=== PATIENT | female | born 1950 ===

== ENCOUNTER → 2023-05-19 13:03 | Outpatient (REF) | payer OTHER, SELFPAY | LOC: DHCBC HW 13:03 | PROVIDERS: ATTENDING PHYSICIAN Internal Medicine Cardiovascular Disease; FAMILY PHYSICIAN Family Medicine | DX: R07.9 Chest pain, unspecified (principal); R00.2 Palpitations; R94.31 Abnormal electrocardiogram [ECG] [EKG]; E78.2 Mixed hyperlipidemia | CPT/HCPCS: 93306 ==

== ENCOUNTER → 2023-06-24 14:25 | Outpatient (REF) | payer OTHER, SELFPAY | LOC: RCS 14:25 | PROVIDERS: ATTENDING PHYSICIAN Internal Medicine Cardiovascular Disease; FAMILY PHYSICIAN Family Medicine | DX: R07.9 Chest pain, unspecified (principal); R00.2 Palpitations; R94.31 Abnormal electrocardiogram [ECG] [EKG]; E78.2 Mixed hyperlipidemia | CPT/HCPCS: 93017 ==